=== PATIENT | female | born 1985 | race Caucasian/White ===

== ENCOUNTER 2017-05-05 10:03 | Emergency (ER) | payer MEDICAID ==
[~2017-05-05] VITALS: Ht 175.3 cm; Wt 68.0 kg
[~2017-05-05 10:03] MED LIST: ALBUTEROL-200 PUFFS/ IH; BENZONATATE100 MG PO; FLEXERIL10 M1 PO; MEDROL 4MG. DOSE4 MG PO; PHENERGAN 25MG.25 M1 PO; PRILOSEC OTC20 MG PO; SINGULAIR10 MG PO; TESSALON PERLE100 MG PO; VIBRAMYCIN 100100 MG PO
--- NOTE | 2017-05-05 10:36 | Emergency Room Report ---
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 N Clinical Suspician of Infection? N Mental Status: 1 - Regular (Normal Baseline) Sepsis Risk:Low Sepsis Risk Have you (or family members/close friends) recently traveled outside the [place]? N If Yes, where/when: Have you had exposure to infectious disease within the past month? N TB? Other? Specify: Source patient, RN notes reviewed, RN/MD Exam Limitations no limitations Comment This is a 32-year-old female patient presented emergency room with multiple, various vague complaints: Feeling dizzy, feeling "weird in the head", being concerned with "my blood pressure being elevated", also very dizzy with turning her head. Patient denies any recent travel, any recent exposure to sick contacts, any fever. ALLERGIES Coded Allergies: SHELLFISH (FOOD) (From SHELLFISH (FOOD/DRUG)) (Mild, SNEZZING 07/21/13) Home Medications Reported Medications Montelukast Sodium (Singulair) 10 MG PO QHS Albuterol (Albuterol-Hfa Inhaler) 2 PUFFS IH DAILY &PRN #1 INH History Medical History General CAD? No Angina: No NM: No Hypertension? No Hyperlipidemia? No CHF? No DVT? No PE? No COPD? No Asthma? Yes Anemia? No GERD? No Gastric ulcers? No GI Bleed? No Hernia? No Thyroid Problems? No Hypothyroidism? No CVA? No Seizures? No Diabetes? No Renal Insuffiency? No End Stage Renal Disease? No UTI? No Stones? No BPH? No GB Disease: No Nephritic Syndrome? No Asplenia? No Hepatitis? No Sickle Cell Disease? No Arthritis? No Migraines? No Cataracts? No Glaucoma? No MRSA? No HIV? No TB? No Anxiety? No Depression? No Cancer? 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 Social History Smoking Hx Smoker: Never Smoker Tobacco: No Alcohol Alcohol: No Review of Systems All Other Systems Reviewed and Negative Psychiatric/Neurological headache, other (dizziness) Physical Exam Vital Signs Vital Signs Date Time Temp Pulse Resp B/P Pulse O2 O2 Flow FiO2 Ox Delivery Rate 05/05 1225 98.9 65 14 133/92 98 05/05 1134 65 14 133/92 98 05/05 1101 60 14 147/68 98 05/05 1054 14 05/05 1024 98.9 64 12 156/92 97 05/05 1018 98.2 70 18 171/92 98 General Appearance normal appearance, WD/WN, no apparent distress, anxious Eye Exam - bilateral eye normal exam, bilateral eye PERRL, bilateral eye EOMI Ear, Nose, Throat hearing grossly normal, normal ENT inspection Neck normal inspection, non-tender, supple, full range of motion Respiratory Status Yes: trachea midline, chest symmetrical, non tender chest. No: respiratory distress. Lung Sounds bilateral: normal breath sounds, lungs clear. 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 No Comment Patient appears very anxious and very emotional. She appears otherwise medically stable, in no acute distress. Seems to be suggestive of labyrinthitis, will send patient home with gwyn, and advised her to follow-up with PCP within 2 days if no better. If any further medical concerns and/or not able to see PCP timely, patient advised to return promptly to this emergency room for another reevaluation. Results/Orders Laboratory Tests 05/05/17 1107: Urine Color YELLOW, Urine Appearance CLOUDY, Urine pH 7.0, Ur Specific [place] 1.015, Urine Protein NEGATIVE, Urine Ketones NEGATIVE, Urine Blood NEGATIVE, Urine Nitrate NEGATIVE, Urine Bilirubin NEGATIVE, Urine Urobilinogen 1.0, Ur Leukocyte Esterase NEGATIVE, Urine RBC NONE, Urine WBC OCC, Ur Squamous Epith Cells 20-50, Urine Bacteria 2+, Urine Glucose NEGATIVE 05/05/17 1030: Sodium 142, Potassium 3.7, Chloride 103, Carbon Dioxide 28, BUN 14, Creatinine 0.8, Estimated Creat Clear 109, Estimated GFR (MDRD) 84, Glucose 97, Calcium 8.9 , Total Bilirubin 0.2, AST 9 L, ALT 19, Alkaline Phosphatase 84, Total Protein 7.5, Albumin 3.9, Globulin 3.6 H, Albumin/Globulin Ratio 1.1, WBC 9.5, RBC 5.24 , Hgb 15.3, Hct 44.8, MCV 85.6, RDW 12.9, Plt Count 291, MPV 7.6, Gran % 61.5, Gran # 5.9, Lymphocytes % 29.3, Monocytes % 4.9, Eosinophils % 3.5, Basophils % 0.9, Lymphocytes # 2.8, Monocytes # 0.5, Eosinophils # 0.3, Basophils # 0.1, PUBS MCHC 34.1, MCH 29.2 Current Medication Orders Sig/Stormy Start time Last Medication Dose Route Stop Time Status Admin Meclizine HCl 0 .STK-MED ONE 05/05 1218 DC .ROUTE Meclizine HCl 25 MG ONCE ONE 05/05 1200 DC 05/05 PO 05/05 1201 1219 Sodium Chloride 10 ML PRN PRN 05/05 1100 DCD IV 05/06 1054 Ondansetron HCl 0 .STK-MED ONE 05/05 1048 DC .ROUTE Ketorolac 0 .STK-MED ONE 05/05 1047 DC Tromethamine .ROUTE Ketorolac 30 MG ONCE ONE 05/05 1045 DC 05/05 Tromethamine IV 05/05 1046 1054 Ondansetron HCl 4 MG ONCE ONE 05/05 1045 DC 05/05 IV 05/05 1046 1057 Orders Procedure Date/time Status DIET-NOTHING BY MOUTH 05/05 L Active CULTURE, URINE 05/05 1107 Active IV SALINE LOCK 05/05 1054 Active CBC WITH AUTO DIFF 05/05 1033 Complete CHEM 12 PROFILE 05/[address] HEAD REQ 05/05 1032 Complete URINALYSIS/COMPLETE 05/05 1032 Complete URINE 05/05 1032 Complete 12 LEAD EKG-SRAVANTHI (INITIAL) 05/05 UNK Active 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 of ischemic chgs, no ectopy, normal QRS, normal AL, normal EKG, no EKG for comparison, non-spec. ST/Twave chgs, ST elevation, ST depression, LBBB, RBBB, ectopy, abnormal Q waves XRAY/CT/US XRAY/CT/US CT head CT interpretation by discussed w/radiologist CT Results see radiologist report, no acute intracranial hemorrhage Departure Departure Time of Disposition 1222 Disposition DC Home or Self Care(routine) Clinical Impression Primary Impression: Migraine headache Qualifiers: Migraine type: without aura Status migrainosus presence: without status migrainosus Intractability: not intractable Qualified Code: G43.009 - Migraine without aura, not intractable, without status migrainosus Secondary Impressions: Labyrinthitis of both ears Condition STABLE Referrals Frank Figueredo MD (Family): Tomorrow-Call Office if not better Patient Instructions DI for Labyrinthitis Additional Instructions Please follow-up with Dr. Figueredo tomorrow if not better. Take the medications prescribed as directed. Discharge Counseling Counseled pt/family regarding diagnosis, test results, medications/RX, home care, follow up needs Comment Please follow-up with Dr. Figueredo tomorrow if not better. Take the medications prescribed as directed. Prescriptions Current Visit Scripts MECLIZINE HCL (Meclizine 25MG) 25 MG PO QIDP PRN dizziness #20 TABLET ED Critical Care Critical Care No at 0904
--- NOTE | 2017-05-05 10:36 | Emergency Room Report ---
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 N Clinical Suspician of Infection? N Mental Status: 1 - Regular (Normal Baseline) Sepsis Risk:Low Sepsis Risk Have you (or family members/close friends) recently traveled outside the [place]? N If Yes, where/when: Have you had exposure to infectious disease within the past month? N TB? Other? Specify: Source patient, RN notes reviewed, RN/MD Exam Limitations no limitations Comment This is a 32-year-old female patient presented emergency room with multiple, various vague complaints: Feeling dizzy, feeling "weird in the head", being concerned with "my blood pressure being elevated", also very dizzy with turning her head. Patient denies any recent travel, any recent exposure to sick contacts, any fever. ALLERGIES Coded Allergies: SHELLFISH (FOOD) (From SHELLFISH (FOOD/DRUG)) (Mild, SNEZZING 07/21/13) Home Medications Reported Medications Montelukast Sodium (Singulair) 10 MG PO QHS Albuterol (Albuterol-Hfa Inhaler) 2 PUFFS IH DAILY &PRN #1 INH History Medical History General CAD? No Angina: No GA: No Hypertension? No Hyperlipidemia? No CHF? No DVT? No PE? No COPD? No Asthma? Yes Anemia? No GERD? No Gastric ulcers? No GI Bleed? No Hernia? No Thyroid Problems? No Hypothyroidism? No CVA? No Seizures? No Diabetes? No Renal Insuffiency? No End Stage Renal Disease? No UTI? No Stones? No BPH? No GB Disease: No Nephritic Syndrome? No Asplenia? No Hepatitis? No Sickle Cell Disease? No Arthritis? No Migraines? No Cataracts? No Glaucoma? No MRSA? No HIV? No TB? No Anxiety? No Depression? No Cancer? 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 Social History Smoking Hx Smoker: Never Smoker Tobacco: No Alcohol Alcohol: No Review of Systems All Other Systems Reviewed and Negative Psychiatric/Neurological headache, other (dizziness) Physical Exam Vital Signs Vital Signs Date Time Temp Pulse Resp B/P Pulse O2 O2 Flow FiO2 Ox Delivery Rate 05/05 1225 98.9 65 14 133/92 98 05/05 1134 65 14 133/92 98 05/05 1101 60 14 147/68 98 05/05 1054 14 05/05 1024 98.9 64 12 156/92 97 05/05 1018 98.2 70 18 171/92 98 General Appearance normal appearance, WD/WN, no apparent distress, anxious Eye Exam - bilateral eye normal exam, bilateral eye PERRL, bilateral eye EOMI Ear, Nose, Throat hearing grossly normal, normal ENT inspection Neck normal inspection, non-tender, supple, full range of motion Respiratory Status Yes: trachea midline, chest symmetrical, non tender chest. No: respiratory distress. Lung Sounds bilateral: normal breath sounds, lungs clear. 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 No Comment Patient appears very anxious and very emotional. She appears otherwise medically stable, in no acute distress. Seems to be suggestive of labyrinthitis, will send patient home with gwyn, and advised her to follow-up with PCP within 2 days if no better. If any further medical concerns and/or not able to see PCP timely, patient advised to return promptly to this emergency room for another reevaluation. Results/Orders Laboratory Tests 05/05/17 1107: Urine Color YELLOW, Urine Appearance CLOUDY, Urine pH 7.0, Ur Specific [place] 1.015, Urine Protein NEGATIVE, Urine Ketones NEGATIVE, Urine Blood NEGATIVE, Urine Nitrate NEGATIVE, Urine Bilirubin NEGATIVE, Urine Urobilinogen 1.0, Ur Leukocyte Esterase NEGATIVE, Urine RBC NONE, Urine WBC OCC, Ur Squamous Epith Cells 20-50, Urine Bacteria 2+, Urine Glucose NEGATIVE 05/05/17 1030: Sodium 142, Potassium 3.7, Chloride 103, Carbon Dioxide 28, BUN 14, Creatinine 0.8, Estimated Creat Clear 109, Estimated GFR (MDRD) 84, Glucose 97, Calcium 8.9 , Total Bilirubin 0.2, AST 9 L, ALT 19, Alkaline Phosphatase 84, Total Protein 7.5, Albumin 3.9, Globulin 3.6 H, Albumin/Globulin Ratio 1.1, WBC 9.5, RBC 5.24 , Hgb 15.3, Hct 44.8, MCV 85.6, RDW 12.9, Plt Count 291, MPV 7.6, Gran % 61.5, Gran # 5.9, Lymphocytes % 29.3, Monocytes % 4.9, Eosinophils % 3.5, Basophils % 0.9, Lymphocytes # 2.8, Monocytes # 0.5, Eosinophils # 0.3, Basophils # 0.1, PUBS MCHC 34.1, MCH 29.2 Current Medication Orders Sig/Stormy Start time Last Medication Dose Route Stop Time Status Admin Meclizine HCl 0 .STK-MED ONE 05/05 1218 DC .ROUTE Meclizine HCl 25 MG ONCE ONE 05/05 1200 DC 05/05 PO 05/05 1201 1219 Sodium Chloride 10 ML PRN PRN 05/05 1100 DCD IV 05/06 1054 Ondansetron HCl 0 .STK-MED ONE 05/05 1048 DC .ROUTE Ketorolac 0 .STK-MED ONE 05/05 1047 DC Tromethamine .ROUTE Ketorolac 30 MG ONCE ONE 05/05 1045 DC 05/05 Tromethamine IV 05/05 1046 1054 Ondansetron HCl 4 MG ONCE ONE 05/05 1045 DC 05/05 IV 05/05 1046 1057 Orders Procedure Date/time Status DIET-NOTHING BY MOUTH 05/05 L Active CULTURE, URINE 05/05 1107 Active IV SALINE LOCK 05/05 1054 Active CBC WITH AUTO DIFF 05/05 1033 Complete CHEM 12 PROFILE 05/[address] HEAD REQ 05/05 1032 Complete URINALYSIS/COMPLETE 05/05 1032 Complete URINE 05/05 1032 Complete 12 LEAD EKG-SRAVANTHI (INITIAL) 05/05 UNK Active 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 of ischemic chgs, no ectopy, normal QRS, normal AR, normal EKG, no EKG for comparison, non-spec. ST/Twave chgs, ST elevation, ST depression, LBBB, RBBB, ectopy, abnormal Q waves XRAY/CT/US XRAY/CT/US CT head CT interpretation by discussed w/radiologist CT Results see radiologist report, no acute intracranial hemorrhage Departure Departure Time of Disposition 1222 Disposition DC Home or Self Care(routine) Clinical Impression Primary Impression: Migraine headache Qualifiers: Migraine type: without aura Status migrainosus presence: without status migrainosus Intractability: not intractable Qualified Code: G43.009 - Migraine without aura, not intractable, without status migrainosus Secondary Impressions: Labyrinthitis of both ears Condition STABLE Referrals Frank Figueredo MD (Family): Tomorrow-Call Office if not better Patient Instructions DI for Labyrinthitis Additional Instructions Please follow-up with Dr. Figueredo tomorrow if not better. Take the medications prescribed as directed. Discharge Counseling Counseled pt/family regarding diagnosis, test results, medications/RX, home care, follow up needs Comment Please follow-up with Dr. Figueredo tomorrow if not better. Take the medications prescribed as directed. Prescriptions Current Visit Scripts MECLIZINE HCL (Meclizine 25MG) 25 MG PO QIDP PRN dizziness #20 TABLET ED Critical Care Critical Care No at 0932
[2017-05-05 11:00] LABS: LYMPH # 2.8 K/mm3 (0.7-4.5); LYMPH % 29.3 % (10-50.0)
[2017-05-05 11:05] LABS: HEMOGLOBIN 15.3 g/dL (12.2-16.2)
[2017-05-05 11:15] LABS: URINE BILIRUBIN - DIPSTICK NEGATIVE (NEG); URINE BLOOD NEGATIVE (NEG)
[2017-05-05 11:33] LABS: URINE SQUAMOUS CELLS 20-50 #/hpf (0-5)
--- NOTE | 2017-05-05 11:40 | RADIOLOGY REPORT PS360 ---
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 Brain and bone windows reviewed. FINDINGS: No midline shift, mass effect, intracranial hemorrhage, hydrocephalus, or extra-axial fluid collection is evident. The calvarium has an unremarkable appearance. No mastoid effusion. The visualized paranasal sinuses are unremarkable. IMPRESSION: Negative CT head without contrast. No acute finding.
[2017-05-05] MEDS ORDERED: MECLIZINE 25MG25 MG PO (12:24)
[2017-05-05 12:25] VITALS: BP 133/92
== END 2017-05-05 12:29 | disposition home or self-care (01) ==
LOC: UTC 10:03 → ER 10:12
PROVIDERS: Emergency Medicine
DX: G43.009 Migraine without aura, not intractable, without status migrainosus (principal); H83.03 Labyrinthitis, bilateral
CPT/HCPCS: J2405